=== PATIENT | male | born 1985 | race Caucasian/White ===

== ENCOUNTER 2018-04-12 23:43 | Emergency (ER) | END 2018-04-13 04:33 | disposition left against medical advice (07) ==

== ENCOUNTER 2018-12-29 16:29 | Emergency (ER) | payer BC ==
[~2018-12-29] VITALS: Wt 77.5 kg
[~2018-12-29 16:29] MED LIST: BACITUD TOP; CYCL10TA7 PO; IBUP-1542 PO; IBUP800T48 PO
[2018-12-29 16:32] VITALS: BP 122/56; PULSE 56; RESP 18
[2018-12-29] MEDS ORDERED: BACITRACIN 0.5%/ZINC 28.35 GM OINT TOP ONE (17:30)
[2018-12-29] MEDS ORDERED: DIPHTH/TET/ACEL PERTUSS (ADULT) 0.5 ML VIAL IM* ONE (17:30)
== END 2018-12-29 17:26 | disposition home or self-care (01) ==
LOC: FTE 16:29
DX: S61.301A Unspecified open wound of left index finger with damage to nail, initial encounter (principal); X58.XXXA Exposure to other specified factors, initial encounter; Y92.9 Unspecified place or not applicable
CPT/HCPCS: 99282; Z7610